=== PATIENT | female | born 1985 | race Caucasian/White ===

== ENCOUNTER 2018-04-04 12:11 | Emergency (ER) | payer MEDICAID ==
[~2018-04-04] VITALS: Ht 162.6 cm; Wt 61.0 kg
[2018-04-04 12:16] VITALS: BP 140/83
[2018-04-04] MEDS ORDERED: KETOROLAC 30 MG/1 ML IM ONE (13:00)
== END 2018-04-04 12:57 | disposition left against medical advice (07) ==
LOC: ED 12:55
DX: M25.552 Pain in left hip (principal); M79.672 Pain in left foot; G89.29 Other chronic pain
CPT/HCPCS: 99281